=== PATIENT | female | born 1985 | race Caucasian/White ===

== ENCOUNTER 2020-04-04 04:18 | Emergency (ER) | payer OTHER ==
[~2020-04-04] VITALS: Ht 165.1 cm; Wt 73.0 kg
[2020-04-04] MEDS ORDERED: VISCOUS LIDOCAINE 2% 15 ML UDC MM STA (05:16)
[2020-04-04] MEDS ORDERED: KETOROLAC 60MG/2ML VIAL IM ONE (05:30)
[2020-04-04] MEDS ORDERED: MAGNESIUM/ALUMINUM HYDROXIDE/SIMETHICONE 30ML UDC PO ONE (05:30)
[2020-04-04 05:35] VITALS: BP 116/69
== END 2020-04-04 06:27 | disposition home or self-care (01) ==
LOC: ER 04:18
DX: K21.9 Gastro-esophageal reflux disease without esophagitis (principal)
CPT/HCPCS: 71045; 81025; 93005; 96372; 99283; J1885